=== PATIENT | female | born 1980 | race Two or more races ===

== ENCOUNTER 2021-01-28 07:11 | Day surgery (SDC) | payer OTHER | END 2021-01-28 10:55 | disposition home or self-care (01) | LOC: AMB-ENDOS 07:11 | PROVIDERS: ATTEND Surgery | DX: K29.50 Unspecified chronic gastritis without bleeding (principal); K44.9 Diaphragmatic hernia without obstruction or gangrene; Z20.822 Contact with and (suspected) exposure to COVID-19 ==

== ENCOUNTER 2025-05-21 21:38 | Emergency (ER) | payer OTHER ==
[~2025-05-21] VITALS: Ht 154.9 cm; Wt 70.3 kg
[2025-05-21 22:05] VITALS: BP 108/72; O2SAT 96
[2025-05-21] MEDS ORDERED: DIPHENHYDRAMINE HCL 50 MG/ML VIAL 1ML IM STA (23:12)
[2025-05-21 23:59] LABS: BASO % 0.9 % (0.1-1.2); EOS # 0.14 (0.04-0.54); EOS % 3.1 % (0.7-7.0); LYMPH # 1.18 (1.18-3.74); LYMPH % 26.5 % (19.3-53.1); MEAN PLATELET VOLUME 8.60 fl (9.4-12.4); MONO # 0.60 (0.24-0.82); NEUT # 2.48 (1.56-6.13); NEUT % 55.6 % (34.0-71.1); RED CELL DISTRIBUTION WIDTH 12.4 % (11.6-14.4)
[2025-05-22 00:04] LABS: MONO % 13.5 % (4.7-12.5)
[2025-05-22 00:15] LABS: URINE APPEARANCE Clear; URINE BILIRRUBIN Negative (NEGATIVE); URINE BLOOD Negative; URINE COLOR Yellow; URINE GLUCOSE Negative (NEGATIVE); URINE KETONE Negative (NEGATIVE); URINE LEUKOCYTE Negative; URINE NITRATE Negative; URINE PROTEIN Negative (NEGATIVE); URINE UROBILINOGEN 0.2 E.U./dl
[2025-05-22 00:16] LABS: ALT/SGPT 105.0 U/L (12-78); AST/SGOT 48.0 U/L (15-37); BILIRUBIN TOTAL 0.44 mg/dL (0.3-1.2); BUN CREA RATIO 14.0 (7.0-25.0); CREATININE SERUM 0.87 mg/dL (0.55-1.02); GFR 69.79; GLOBULINA 4.3 G/DL (2.4-3.5); GLUCOSE FASTING 97.0 mg/dL (65-100); OSMOLALITY SERUM 283.0 MOSM/KG (275-295)
[2025-05-22 00:18] LABS: URINE BACTERIA 61.1 uL (0.0-1933); URINE EPITHELIAL CELLS 42.1 uL (0.0-38.8); URINE RBC 5.5 uL (0.0-20.8); URINE WBC 6.6 uL (0.0-23.2)
[2025-05-22 00:27] LABS: URINE CAST 0.00 uL (0.0-1.40)
[2025-05-22] MEDS ORDERED: DIPHENHYDRAMINE HCL 50 MG/ML VIAL 1ML IV STA (01:59)
[2025-05-22] MEDS ORDERED: METHYLPREDNISOLONE SOD SUCC 125 MG VIAL IV STA (01:59)
[2025-05-22] MEDS ORDERED: FAMOTIDINE/PF 20 MG/2 ML VIAL IV PUSH STA (02:00)
[2025-05-22] MEDS ORDERED: EPINEPHRINE HCL/PF 1 MG/ML AMPUL SUBCUTANEO STA (02:00)
[2025-05-22] MEDS ORDERED: PEPCID40 MG PO (02:44)
[2025-05-22] MEDS ORDERED: MEDROL8 MG PO (02:44)
[2025-05-22] MEDS ORDERED: BENADRYL25 MG PO (02:44)
[2025-05-22 03:32] LABS: EOSINOPHIL MAN 2.0 %; LYMPHOCYTE MAN 26.0 %; MONOCYTE MAN 7.0 %; NEUTROPHILS MAN 62.0 %
== END 2025-05-22 03:13 | disposition home or self-care (01) ==
LOC: ER 21:38
PROVIDERS: General Practice
DX: T78.40XA Allergy, unspecified, initial encounter (principal); E03.8 Other specified hypothyroidism; Z98.84 Bariatric surgery status